=== PATIENT | female | born 1995 | race Caucasian/White ===

== ENCOUNTER 2019-05-05 14:00 | Inpatient (IN) | payer OTHER ==
[2019-05-05] MEDS ORDERED: ELECTROLYTE-148 SOLN 1,000 ML IV SCH (14:30)
[2019-05-05] MEDS ORDERED: AMPICILLIN - 2 GM in SODIUM CHLORIDE 100 ML IVPB ONE (14:30)
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
--- NOTE | 2019-05-05 14:38 | PN ---
Progress Note, Labor Vaginal Exam #1 Labor Exam Date: 05/05/19 Labor Exam Time: 14:37 Heart Rate (range): Cat I Dilatation: 7 Effacement (%): 100 Amniotic Membrane Status: Ruptured Presentation: Vertex/Position Station: -1 Remarks: Patient called out, SROM Copious clear fluids Cont Amp Anticipate Guillermina Flynn MD
[2019-05-05 14:43] VITALS: BMI 43.0
--- NOTE | 2019-05-05 15:04 | PN ---
Progress Note, Labor Vaginal Exam #2 Labor Exam Date: 05/05/19 Labor Exam Time: 15:03 Heart Rate (range): Cat I Dilatation: 8 Effacement (%): 100 Amniotic Membrane Status: Ruptured Presentation: Vertex/Position Station: -2 Remarks: Patient complaining of increased pressure and urge to push 8cm Continue current management Guillermina Flynn MD
[2019-05-05] MEDS ORDERED: OXYTOCIN 20 UNITS in 0.9% NS 20 UNIT/1,000 ML INFUS.BAG IV ONE ×2 (16:23→18:35)
[2019-05-05] MEDS ORDERED: oxyCODONE HCL 5 MG TABLET PO ONE (16:38)
[2019-05-05] MEDS ORDERED: BENZOCAINE 28 GM HEMORRHOIDAL OINTMENT TP PRN (16:38)
[2019-05-05] MEDS ORDERED: BENZOCAINE 20% 57 GM BOTTLE TP PRN (16:38)
[2019-05-05] MEDS ORDERED: METHYLERGONOVINE MALEATE 0.2 MG/1 ML AMP IM PRN (16:38)
[2019-05-05] MEDS ORDERED: BISACODYL 10 MG SUPP.RECT RC PRN (16:38)
[2019-05-05] MEDS ORDERED: WITCH HAZEL 50% (TUCKS) 40 PAD/JAR PAD TP PRN (16:38)
--- NOTE | 2019-05-05 16:38 | PN ---
Delivery - Delivery Vaginal Delivery: Spontaneous Type of Anesthesia: None Episiotomy/Laceration: None EBL (cc): 300 Delivery, Single - Stages of Labor Placenta: Yes: Spontaneous - Condition of Infant Lap Machine Operator/Code Enforcement Inspector Present: No Infant Gender: Female Position: Left, Right, OA - 1 Minute Total Score: 7 5 Minutes Total Score: 9 - Feeding Plan Initial Plan: Elected not to breastfeed exclusively throughout hospitalization Remarks - Remarks Remarks: Spontaneous delivery of VFI from DAVID position over intact perineum. No anesthesia. 41 week . Spontaneous delivery of anterior shoulder. placed onto the bed, cord cut and clamped. handed off to nursing staff. Spontaneous delivery of intact placenta with 3VC. Fundus firm. Perineum inspected inspected, no lacerations. EBL 300. Joann Flynn MD
[2019-05-05] MEDS ORDERED: OXYTOCIN 20 UNITS in 0.9% NS 20 UNIT/1,000 ML INFUS.BAG IV SCH (16:45)
[2019-05-05] MEDS ORDERED: oxyCODONE HCL 5 MG TABLET ONE (16:47)
[2019-05-05] MEDS ORDERED: ACETAMINOPHEN 325 MG TABLET (FP) ONE (16:47)
[2019-05-05] MEDS: ACETAMINOPHEN 325 MG TABLET (FP) PO PRN ×2 (16:52→20:39)
[2019-05-05 17:52] LABS: BASO % 0.2 % (0-2.0); EOS % 0.2 % (0-4.5); HEMATOCRIT 33.9 % (32.4-45.2); HEMOGLOBIN 10.8 GM/dL (10.7-15.3); LYMPH % 10.1 % (8-40); MCH 24.8 pg (25.7-33.7); MCHC 31.8 g/dl (32.0-36.0); MEAN CELL VOLUME 78.1 fl (80-96); MEAN PLT VOLUME 8.7 fl (7.5-11.1); MONO % 4.6 % (3.8-10.2); NEUT % 84.9 % (42.8-82.8); PLATELET COUNT 222 K/MM3 (134-434); RBC 4.35 M/mm3 (3.60-5.2); RDW 17.2 % (11.6-15.6); WHITE BLOOD COUNT 16.6 K/mm3 (4.0-10.0)
[2019-05-05 17:59] LABS: BLOOD UREA NITROGEN 9.3 mg/dL (7-18); CALCIUM 7.8 mg/dL (8.5-10.1); CREATININE 0.6 mg/dL (0.55-1.3); POTASSIUM 3.8 mmol/L (3.5-5.1)
[2019-05-05 18:12] LABS: INR 0.97 (0.83-1.09); PROTHROMBIN TIME (PATIENT) 11.4 SEC (9.7-13.0)
[2019-05-05 18:14] LABS: ACTIVATED PTT 26.4 SECONDS (25.2-36.5)
[2019-05-05] MEDS ORDERED: AMPICILLIN - 1 GM in SODIUM CHLORIDE 100 ML IVPB SCH (18:30)
[2019-05-05] MEDS: IBUPROFEN 600 MG TABLET (FP) PO PRN (20:42)
[2019-05-06] MEDS: ACETAMINOPHEN 325 MG TABLET (FP) PO PRN ×3 (01:22→14:09)
[2019-05-06] MEDS: IBUPROFEN 600 MG TABLET (FP) PO PRN ×3 (01:22→14:08)
[2019-05-06 08:44] LABS: BASO % 0.4 % (0-2.0); EOS % 0.8 % (0-4.5); HEMATOCRIT 30.4 % (32.4-45.2); HEMOGLOBIN 9.7 GM/dL (10.7-15.3); LYMPH % 20.9 % (8-40); MCH 24.8 pg (25.7-33.7); MCHC 31.8 g/dl (32.0-36.0); MEAN CELL VOLUME 77.8 fl (80-96); MEAN PLT VOLUME 8.7 fl (7.5-11.1); MONO % 5.8 % (3.8-10.2); NEUT % 72.1 % (42.8-82.8); PLATELET COUNT 189 K/MM3 (134-434); RBC 3.91 M/mm3 (3.60-5.2); RDW 17.2 % (11.6-15.6)
[2019-05-06] MEDS ORDERED: DIPHTH,PERTUSS(ACELL),TET 0.5 ML DISP.SYRIN IM ONE (10:00)
--- NOTE | 2019-05-06 10:00 | PN ---
Post Progress Note - Subjective Subjective: 23 yo Para 3, status post vaginal delivery, seen and evaluated. Doing well. Post Day: 1 Type of Delivery: Vital Signs: Vital Signs Temperature 98 F 05/06/19 06:33 Pulse Rate 71 05/06/19 06:33 Respiratory Rate 18 05/06/19 06:33 Blood Pressure 105/53 L 05/06/19 06:33 O2 Sat by Pulse Oximetry (%) 100 05/05/19 18:00 Breast Exam: Yes: Soft Uterus: Yes: Fundus Firm Abdomen/GI: Yes: Abdomen soft, Tolerating PO Lochia: Yes: Rubra Lochia, amount: Moderate Extremities: Yes: Calves non-tender Activity: Ambulating - Labs Labs: CBC WBC 16.6 K/mm3 (4.0-10.0) H 05/05/19 17:00 RBC 4.35 M/mm3 (3.60-5.2) 05/05/19 17:00 Hgb 10.8 GM/dL (10.7-15.3) 05/05/19 17:00 Hct 33.9 % (32.4-45.2) 05/05/19 17:00 MCV 78.1 fl (80-96) L 05/05/19 17:00 MCH 24.8 pg (25.7-33.7) L 05/05/19 17:00 MCHC 31.8 g/dl (32.0-36.0) L 05/05/19 17:00 RDW 17.2 % (11.6-15.6) H 05/05/19 17:00 Plt Count 222 K/MM3 (134-434) D 05/05/19 17:00 MPV 8.7 fl (7.5-11.1) 05/05/19 17:00 Absolute Neuts (auto) 14.1 K/mm3 (1.5-8.0) H 05/05/19 17:00 Neutrophils % 84.9 % (42.8-82.8) H D 05/05/19 17:00 Lymphocytes % 10.1 % (8-40) D 05/05/19 17:00 Monocytes % 4.6 % (3.8-10.2) 05/05/19 17:00 Eosinophils % 0.2 % (0-4.5) D 05/05/19 17:00 Basophils % 0.2 % (0-2.0) 05/05/19 17:00 Nucleated RBC % 0 % (0-0) 05/05/19 17:00 Problem List - Problems (1) Status post normal vaginal delivery Code(s): [id number] - Assessment/Plan Status post normal vaginal delivery Stable Continue routine care
[2019-05-06] MEDS ORDERED: SENNOSIDES/DOCUSATE COMBO (SENNA PLUS) TABLET (UD) PO PRN (22:00)
[2019-05-06 22:37] VITALS: PULSE 80
[2019-05-07] MEDS: ACETAMINOPHEN 325 MG TABLET (FP) PO PRN ×4 (00:16→17:25)
[2019-05-07] MEDS: IBUPROFEN 600 MG TABLET (FP) PO PRN ×4 (00:17→17:24)
[2019-05-07 09:03] VITALS: BP 114/67; TEMP 98.6
--- NOTE | 2019-05-07 09:43 | DS ---
Physical Examination Vital Signs: Vital Signs Temperature 98.6 F 05/07/19 09:01 Pulse Rate 80 05/07/19 09:01 Respiratory Rate 18 05/07/19 09:01 Blood Pressure 114/67 05/07/19 09:01 O2 Sat by Pulse Oximetry (%) 100 05/05/19 18:00 Findings/Remarks: Patient reports feeling tired and down, no suicidal/homocidal ideation. She desires to go home and its ok with psych evaluation due to history Constitutional: Yes: Anxious Eyes: Yes: WNL HENT: Yes: Atraumatic Neck: Yes: Supple Cardiovascular: Yes: Regular Rate and Rhythm Respiratory: Yes: Regular Gastrointestinal: Yes: Soft ...Rectal Exam: Yes: Deferred Renal/: Yes: Vaginal Bleeding (lochia) Breast(s): Yes: Other (deferred) Extremities: Yes: WNL Edema: Yes Edema: LLE: Trace, RLE: Trace Integumentary: Yes: WNL Wound/Incision: Yes: Well Approximated (perineal) Neurological: Yes: Alert, Oriented ...Motor Strength: WNL Psychiatric: Yes: Alert, Oriented, Other (anxious) Labs: CBC, BMP 05/06/19 07:50 05/05/19 17:00 Discharge Summary Reason For Visit: LABOR Current Active Problems Status post normal vaginal delivery (Acute) H/O depression Anxiety Procedures: Principal: VD Hospital Course: Patient had uncomplicated delivery. recovery complicated by anxiety and H/O depression with suicidal attempts. Patient denies suicidal/homocidal idetions and agreed to SW and psychiatry evaluation prior to D/C. Instructed to follow up at health center in 1-2 weeks. Warning/precautions signs discussed. Condition: Stable - Instructions Diet, Activity, Other Instructions: Regular Diet Follow up in 1-2 weeks Follow up in 4-6 weeks for your visit Psych service consulted Referrals: Joann Flynn MD [Staff Physician] - Disposition: HOME - Home Medications Comprehensive Discharge Medication List: Ambulatory Orders Albuterol Sulfate Inhaler - [Ventolin HFA Inhaler -] 1 puff IH DAILY PRN Vitamins (Sjr) - 1 tab PO DAILY tablet 07/27/16 Ibuprofen 600 mg PO Q6H PRN #30 tablet 05/06/19
--- NOTE | 2019-05-07 19:01 | CON.PSY ---
Psychiatry Consult Chief Complaint: 23 Sonia old female with third child seen for Psych eval. Had a hitory of DEpression and ? Bi polar disorder. Has not taken any Psych meds or seen any one recently. Reports feeling good, no reports of any mood changes. - Previous Psychiatric Treatment Outpatient: More than 6 mos ago Inpatient: None - Previous Substance Abuse Treatment Outpatient: None Inpatient: None - Reason for Previous Treatment Reason for Previous Treatment: Biploar Illness - Current Medications Current Medications: Active Medications Acetaminophen (Tylenol -) 650 mg PO Q3H PRN PRN Reason: PAIN Last Admin: 05/07/19 17:25 Dose: 650 mg Benzocaine (Americaine 20% [place] -) 1 spray TP PRN PRN PRN Reason: PAIN Last Admin: 05/07/19 08:02 Dose: 1 spray Benzocaine (Americaine Ointment -) 1 applic TP PRN PRN PRN Reason: PAIN Bisacodyl (Dulcolax Suppository -) 10 mg RC PRN PRN PRN Reason: CONSTIPATION Ibuprofen (Motrin -) 600 mg PO Q4H PRN PRN Reason: PAIN Last Admin: 05/07/19 17:24 Dose: 600 mg Methylergonovine Maleate (Methergine Injection -) 0.2 mg IM Q4H PRN PRN Reason: EXCESSIVE BLEEDING (L&D) Senna/Docusate Sodium (Pericolace -) 2 tablet PO HS PRN PRN Reason: CONSTIPATION Last Admin: 05/06/19 20:55 Dose: 2 tablet Witch Latanya/Glycerin (Tucks Pads -) 1 pad TP PRN PRN PRN Reason: PAIN - Allergies Allergies: Allergies Allergy/AdvReac Type Severity Reaction Status Date / Time No Known Drug Allergies Allergy Verified 05/04/19 13:25 apple Allergy Uncoded 05/04/19 13:25 cherries Allergy Uncoded 05/04/19 13:25 peaches Allergy Uncoded 05/04/19 13:25 pineapple Allergy Uncoded 05/04/19 13:25 strawberries Allergy Uncoded 05/04/19 13:25 - Current Living Status Usual Living Arrangement: With Parent - Current Mental Status Evaluation Appearance: Well Groomed Attitude: Cooperative - Affect Affect: Full Range Appropriateness: Appropriate to Content - Mood Mood: Euthymic - Speech/Language Expressive: Coherent - Psychomotor Activity Psychomotor Activity: Normal - Thought Process Thought Process: Intact - Thought Content Hallucinations: Absent Delusions: Absent - Self Perception Self Perception: No Impairment - Cognition Attention: Alert Orientation: Time Memory, Immediate Recall: Intact Memory, Short Term: 3/3 Memory, Remote with Promptin/3 - Concentration Serial Sevens Intact: Yes Simple Calculations Intact: Yes - Abstraction Proverb Interpretation: Intact Judgement: Intact - Insight Insight: Intact - Impulse Control Impulse Control: Good Control - Suicidal Ideation Suicidal Ideation: No - Homicidal Ideation Homicidal Ideation: No Assessment/Plan 1) No acute Psych symptoms at this time. 2) Discharge home when medically clear. 3) will set up a follow up @ [address] [place] [address] in 2 weeks.
== END 2019-05-07 20:45 | disposition home or self-care (01) | DRG 560 ==
LOC: JLDR 14:00 → J3W 19:55
PROVIDERS: ADMIT Obstetrics & Gynecology; ATTEND Obstetrics & Gynecology
PROC: 10E0XZZ Delivery of Products of Conception, External Approach (ICD-10-PCS; principal; 2019-05-05)
DX: O48.0 Post-term pregnancy (principal); O99.824 Streptococcus B carrier state complicating childbirth; O99.345 Other mental disorders complicating the puerperium; F41.8 Other specified anxiety disorders; Z3A.41 41 weeks gestation of pregnancy; Z37.0 Single live birth
CPT/HCPCS: 36415; 59409; 80048; 85025; 85610; 85730; 86593; 86850; 86900; 86901; 90715

== ENCOUNTER 2020-05-17 01:19 | Emergency (ER) | payer OTHER ==
[2020-05-17 01:29] VITALS: BMI 40.2
[2020-05-17] MEDS ORDERED: ACETAMINOPHEN 325 MG TABLET (FP) PO ONE (01:38)
[2020-05-17] MEDS ORDERED: ACETAMINOPHEN 325 MG TABLET (FP) ONE (01:44)
[2020-05-17] MEDS ORDERED: ALBUTEROL SO4 0.083% IH SOL 2.5 MG/3 ML VIAL.NEB. NEB ONE ×2 (02:07→02:15)
--- NOTE | 2020-05-17 02:07 | PDOC ---
History of Present Illness - General Chief Complaint: Shortness of Breath Stated Complaint: SHORTNESS OF BREATH Time Seen by Provider: 05/17/20 01:27 History Source: Patient Exam Limitations: No Limitations - History of Present Illness Initial Comments: Pt is a 24 yo F, with PMH of asthma, seasonal allergies, bipolar disorder and anxiety, who is presenting with SOB, chest "tightness" and cough x1 day. Pt states the cough is dry, but had a similar episode January 2020 and had b/l pneumonia which resolved with antibiotics. Pt denies any fevers/chills, headache, vision changes, syncope, palpitations, nausea/vomiting, abdominal pain, urinary symptoms, diarrhea/constipation, or leg swelling. Allergies: NKDA PCP: [facility] Social: Pt denies any cigarette, alcohol, or drug use. Pt denies any recent travel or sick contacts. Surgical: no relevant history. Family: no relevant history. 05/17/20 01:52 05/17/20 03:50 Past History - Travel History Traveled outside of the country in the last 30 days: No Close contact w/someone who was outside of country & ill: No - Medical History Allergies/Adverse Reactions: Allergies Allergy/AdvReac Type Severity Reaction Status Date / Time No Known Drug Allergies Allergy Verified 05/17/20 01:28 apple Allergy Uncoded 05/17/20 01:28 cherries Allergy Uncoded 05/17/20 01:28 peaches Allergy Uncoded 05/17/20 01:28 pineapple Allergy Uncoded 05/17/20 01:28 strawberries Allergy Uncoded 05/17/20 01:28 Home Medications: Ambulatory Orders Albuterol Sulfate Inhaler - [Ventolin HFA Inhaler -] 1 puff IH DAILY PRN 07/26/16 Montelukast Sodium [Singulair] 10 mg PO DAILY 05/17/20 Asthma: Yes Cancer: No Cardiac Disorders: No COPD: No Diabetes: No HTN: No Seizures: No Thyroid Disease: No - Reproductive History (#): 2 Para: 0 Cervical CA: No Dysfunctional Uterine Bleeding: No Ectopic : No Endometrial CA: No Polycystic Ovaries: No Therapeutic (s) & number: No Tubal Ligation: No Spontaneous : 1 - Immunization History Immunization Up to Date: No - Psycho-Social/Smoking History Smoking Status: No Smoking History: Never smoked Have you smoked in the past 12 months: No Number of Cigarettes Smoked Daily: 1 If you are a former smoker, when did you quit?: Oct 2012 Information on smoking cessation initiated: No - Substance Abuse Hx (Audit-C & DAST Scrn) How often the patient has a drink containing alcohol: Never Score: In Men: 4 or > Positive; In Women: 3 or > Positive: 0 Screen Result (Pos requires Nsg. Audit-10AR): Negative In the last yr the pt used illegal drug/Rx for NonMed reason: No Score: Yes response is considered Positive: 0 Screen Result (Positive result requires Nsg. DAST-10): Negative Respiratory Specific PMHX - Complaint Specific PMHX Hx Airway Support: No Hx Intubation: No Hx Asthma: Yes Hx Smoking Exposure: No Hx Vaping: No Hx Allergic Rhinitis: Yes Hx Exposure to Respiratory Irritants: No Hx Bronchitis: No Hx Pneumonia: Yes Hx Pulmonary Embolus: No Hx TB (Tuberculosis): No Review of Systems - Review of Systems Able to Perform ROS?: Yes Is the patient limited Citizen Of [place] proficient: No Constitutional: Yes: Weight Stable. No: Chills, Diaphoresis, Fever, Loss of Appetite, Malaise, Weakness HEENTM: Yes: Nose Congestion. No: Recent change in vision, Throat Pain, Throat Swelling, Difficulty Swallowing Respiratory: Yes: Cough, Shortness of Breath. No: Orthopnea, Wheezing, Productive cough, Hemoptysis Cardiac (ROS): Yes: Chest Tightness. No: Chest Pain, Edema, Irregular Heart Rate, Lightheadedness, Palpitations, Syncope ABD/GI: No: Constipated, Diarrhea, Nausea, Poor Appetite, Poor Fluid Intake, Vomiting : No: Burning, Dysuria, Pain, Urgency Musculoskeletal: No: Back Pain Integumentary: No: Rash Neurological: No: Headache, Numbness, Weakness, Dizziness Psychiatric: No: Sleep Pattern Change, Change in Appetite Endocrine: No: Increased Urine, Change in Weight Hematologic/Lymphatic: No: Anemia, Blood Clots, Easy Bleeding, Easy Bruising All Other Systems: Reviewed and Negative *Physical Exam - Vital Signs Last Vital Signs Temp Pulse Resp BP Pulse Ox 98.8 F 77 20 132/97 100 05/17/20 01:25 05/17/20 01:05/17/20 01:05/17/20 01:05/17/20 01:25 - Physical Exam Vitals stable, pt afebrile. Pt in NAD, morbidly obese body habitus. Pt alert and oriented x3. fourchette sewer generally intact, muscular strength and sensation intact. No midline spinal tenderness, step-offs, or crepitus. Head normocephalic, atraumatic. Eyes PERRLA, EOMI. Oropharynx without erythema or exudates, no LAD b/l. No nasal congestion. Hearing intact. Clear heart sounds, S1/S2, no JVD, b/l pedal edema, or heart murmur. Diminished breath sounds b/l bases, no significant wheezing or intercostal muscle use. Pt speaking in long sentences without becoming winded. No abdominal or CVA tenderness to palpation, no rebound, no guarding. Abdomen soft, non-distended, and with normoactive bowel sounds. Skin without jaundice or rash. 05/17/20 03:52 ED Treatment Course - RADIOLOGY Radiology Studies Ordered: Category Date Time Status CHEST PA & LAT [RAD] Stat Radiology 05/17/20 01:38 Ordered Medical Decision Making - Medical Decision Making Pt was seen at bedside, also will be seen by attending Dr. Dimas. Pt presenting with chest tightness, SOB, and has not had her menstrual period "in a while". Will evaluate for , asthma, pneumonia. Provided albuterol neb and tylenol for improvement of chest tightness/discomfort. Will continue to reassess pt and monitor for symptomatic improvement. ECG: NSR, intervals WNL. No TWIs or significant ST segment changes. No significant changes from prior ECG. Chest x-ray without acute pathology Pt wanted only one nebulizer, refused additional treatments. Pt air movement improving Provided 10 mg PO decadron. VSS, no hypoxia, afebrile, no evidence of pneumonia. Pt tolerating PO intake and ambulated from ER without assistance. Pt stable for d/c to home with PCP f/u. Strict return precautions provided with pt understanding. 05/17/20 03:53 Discharge - Discharge Information Problems reviewed: Yes Clinical Impression/Diagnosis: Atypical chest pain Asthma Qualifiers: Asthma severity: mild Asthma persistence: intermittent Asthma complication type: with acute exacerbation Qualified Code(s): J45.21 - Mild intermittent asthma with (acute) exacerbation Condition: Stable - Admission No - Follow up/Referral Referrals: Pantera Phillips II, DO [Non Staff, Medical] - - Patient Discharge Instructions Patient Printed Discharge Instructions: DI for Asthma -- Adult, DI for Atypical Chest Pain Additional Instructions: You were seen in the ER today for chest tightness. The results of your labs and imaging today were normal and you are not . Please follow-up with your primary care doctor within 1-2 days to discuss your visit and make sure your symptoms have improved. Please return to the ER if you have any worsening pain, development of fevers or chills, loss of consciousness, inability to tolerate food or fluids, or any other concerns. - Post Discharge Activity
--- NOTE | 2020-05-17 02:16 | PDOC ---
Documentation entered by Norman Lagos SCRIBE, acting as scribe for Florinda Dimas MD. Florinda Dimas MD: This documentation has been prepared by the machoibe, Norman Lagos SCRIBE, under my direction and personally reviewed by me in its entirety. I confirm that the documentation accurately reflects all work, treatment, procedures, and medical decision making performed by me. Attending Attestation - Resident Resident Name: JadenCarlene - ED Attending Attestation I have performed the following: I have examined & evaluated the patient, The case was reviewed & discussed with the resident, I agree w/resident's findings & plan, Exceptions are as noted - HPI HPI: 05/17/20 02:05 The patient is a 24 year old female () with a significant past medical history of asthma, anxiety, and depression with suicidal attempts who presents to the ED for evaluation of chest pressure and dry cough that began this afternoon. The patient reports feeling similar to when she had pneumonia in January which resolved with PO antibiotics. The patient also endorses taking Albuterol and Tylenol today to no relief. Denies fever, chills and/or any GI symptoms. Denies any symptoms. Denies any other symptoms. Allergies:NKDA, apples, peaches, cherries, +more PCP: Joann Flynn - Physicial Exam PE: 05/17/20 01:32 GENERAL: Awake, alert, and fully oriented, in no acute distress HEAD: No signs of trauma EYES: PERRLA, EOMI, sclera anicteric, conjunctiva clear ENT: Auricles normal inspection, hearing grossly normal, nares patent, oropharynx clear without exudates. Moist mucosa NECK: Normal ROM, supple, no lymphadenopathy, JVD, or masses LUNGS: Breath sounds equal, clear to auscultation bilaterally. No wheezes, and no crackles HEART: Regular rate and rhythm, normal S1 and S2, no murmurs, rubs or gallops ABDOMEN: Soft, nontender, normoactive bowel sounds. No guarding, no rebound. No masses EXTREMITIES: Normal range of motion, no edema. No clubbing or cyanosis. No cords, erythema, or tenderness NEUROLOGICAL: Cranial nerves II through XII grossly intact. Normal speech, normal gait SKIN: Warm, Dry, normal turgor, no rashes or lesions noted. - Medical Decision Making Pt with SOB, noted to have episodes of coughing c/w bronchospasm when she attempts to take a deep breath. Will treat with albuterol nebs. Await test, CXR to r/o pna (obtaining CXR as she had pna with normal vitals a few months ago). 05/17/20 03:05 UCG negative. CXR obtained, no signs of pna. Will treat for asthma exacerbation with steroids, nebs. Anticipate DC home. Discharge - Discharge Information Problems reviewed: Yes Clinical Impression/Diagnosis: Atypical chest pain Asthma Qualifiers: Asthma severity: mild Asthma persistence: intermittent Asthma complication type: with acute exacerbation Qualified Code(s): J45.21 - Mild intermittent asthma with (acute) exacerbation Condition: Stable Disposition: HOME - Follow up/Referral Referrals: Pantera Phillips II, DO [Non Staff, Medical] - - Patient Discharge Instructions Patient Printed Discharge Instructions: DI for Asthma -- Adult, DI for Atypical Chest Pain Additional Instructions: You were seen in the ER today for chest tightness. The results of your labs and imaging today were normal and you are not . Please follow-up with your primary care doctor within 1-2 days to discuss your visit and make sure your symptoms have improved. Please return to the ER if you have any worsening pain, development of fevers or chills, loss of consciousness, inability to tolerate food or fluids, or any other concerns. - Post Discharge Activity
[2020-05-17 02:27] LABS: EPI CELLS >36 /uL (0-25.1); HCG,QUALITATIVE URINE Negative; HYALINE CASTS 5 /uL (0-3.1); URINE APPEARANCE CLEAR; URINE BACTERIA 14 /uL (0-1359); URINE BILIRUBIN NEGATIVE (NEGATIVE); URINE COLOR YELLOW; URINE GLUCOSE (UA) NEGATIVE (NEGATIVE); URINE KETONE TRACE (NEGATIVE); URINE LEUK ESTERASE 1+ (NEGATIVE); URINE NITRITE NEGATIVE (NEGATIVE); URINE PROTEIN NEGATIVE (NEGATIVE); URINE RBC 12 /uL (0-23.9); URINE UROBILINOGEN 0.2 mg/dL (0.2-1.0); URINE WBC 38 /uL (0-25.8)
[2020-05-17 02:32] VITALS: PULSE 72
[2020-05-17] MEDS ORDERED: ALBUTEROL SO4 2.5/IPRATROPIUM 0.5 INH SOL 3 ML VIAL.NEB. NEB ONE (02:47)
[2020-05-17] MEDS ORDERED: DEXAMETHASONE 4 MG TABLET (FP) PO STA (03:03)
[2020-05-17 03:45] VITALS: BP 130/72; TEMP 98.2
--- NOTE | 2020-05-17 09:28 | EKG ---
Test Reason : Blood Pressure : / mmHG Vent. Rate : 076 BPM Atrial Rate : 076 BPM P-R Int : 140 ms QRS Dur : 082 ms QT Int : 392 ms P-R-T Axes : 052 042 013 degrees QTc Int : 441 ms NORMAL SINUS RHYTHM NONSPECIFIC T WAVE ABNORMALITY ABNORMAL ECG WHEN COMPARED WITH ECG OF 02-MAR-2020 16:53, NON-SPECIFIC CHANGE IN ST SEGMENT IN ANTERIOR LEADS Confirmed by Madeline Rai ([id number]) on 05/17/2020 9:27:47 AM Referred By: Confirmed By:Madeline Rai
== END 2020-05-17 03:46 | disposition home or self-care (01) ==
LOC: JER 01:19
PROC: 3E0F7GC Introduction of Other Therapeutic Substance into Respiratory Tract, Via Natural or Artificial Opening (ICD-10-PCS; principal; 2020-05-17)
DX: R07.89 Other chest pain (principal); J45.21 Mild intermittent asthma with (acute) exacerbation
CPT/HCPCS: 71046-TC-FY; 81003; 84703; 87077; 87086; 93005; 93010; 99285-25; U0003

== ENCOUNTER 2023-01-27 16:03 | Emergency (ER) | payer SELFPAY ==
[2023-01-27 16:25] VITALS: TEMP 98.5; BMI 40.2
[2023-01-27] MEDS ORDERED: SODIUM CHLORIDE 0.9% 500 ML INFUS.BAG IV ONE (17:41)
[2023-01-27] MEDS ORDERED: KETOROLAC TROMETHAMINE 30 MG/1 ML VIAL IVPUSH ONE (17:41)
[2023-01-27] MEDS ORDERED: METOCLOPRAMIDE HCL INJECTION 10 MG/2 ML VIAL IVPUSH ONE (17:41)
[2023-01-27] MEDS ORDERED: METOCLOPRAMIDE HCL INJECTION 10 MG/2 ML VIAL ONE (17:54)
[2023-01-27] MEDS ORDERED: KETOROLAC TROMETHAMINE 30 MG/1 ML VIAL ONE (17:54)
[2023-01-27] MEDS ORDERED: SUMATRIPTAN SUCCINATE 6 MG/0.5 ML VIAL SQ ONE (19:17)
[2023-01-27] MEDS ORDERED: ACETAMINOPHEN 1000 MG/100 ML BAG IVPB ONE (19:18)
[2023-01-27] MEDS ORDERED: SUMATRIPTAN SUCCINATE 6 MG/0.5 ML VIAL ONE (19:23)
[2023-01-27] MEDS ORDERED: ACETAMINOPHEN INJECTION 100 ML IVPB ONE (19:23)
[2023-01-27] MEDS ORDERED: diazePAM 5 MG TABLET PO ONE (19:59)
[2023-01-27 20:15] VITALS: BP 116/53; PULSE 62; RESP 18
== END 2023-01-27 20:59 | disposition home or self-care (01) ==
LOC: JER 16:03
PROC: 3E033NZ Introduction of Analgesics, Hypnotics, Sedatives into Peripheral Vein, Percutaneous Approach (ICD-10-PCS; principal; 2023-01-27)
PROC: 3E033GC Introduction of Other Therapeutic Substance into Peripheral Vein, Percutaneous Approach (ICD-10-PCS; 2023-01-27)
PROC: 3E0333Z Introduction of Anti-inflammatory into Peripheral Vein, Percutaneous Approach (ICD-10-PCS; 2023-01-27)
PROC: 3E033GC Introduction of Other Therapeutic Substance into Peripheral Vein, Percutaneous Approach (ICD-10-PCS; 2023-01-27)
DX: G43.909 Migraine, unspecified, not intractable, without status migrainosus (principal)
CPT/HCPCS: 99284-25

== ENCOUNTER 2023-10-23 12:50 | Emergency (ER) | payer OTHER ==
[2023-10-23 12:57] VITALS: PULSE 89; TEMP 98; BMI 41.1
[2023-10-23] MEDS ORDERED: SODIUM CHLORIDE 0.9% 500 ML INFUS.BAG IV ONE (14:07)
[2023-10-23 14:48] LABS: BASO % 0.6 % (0-2.0); EOS % 1.1 % (0-4.5); HEMATOCRIT 39.7 % (32.4-45.2); HEMOGLOBIN 12.7 GM/dL (10.7-15.3); LYMPH % 24.8 % (8-40); MCH 27.3 pg (25.7-33.7); MCHC 31.9 g/dl (32.0-36.0); MEAN CELL VOLUME 85.6 fl (80-96); MEAN PLT VOLUME 8.2 fl (7.5-11.1); MONO % 5.6 % (3.8-10.2); NEUT % 67.9 % (42.8-82.8); PLATELET COUNT 232 10^3/uL (134-434); RBC 4.63 M/mm3 (3.60-5.2); RDW 13.7 % (11.6-15.6); WHITE BLOOD COUNT 11.3 K/mm3 (4.0-10.0)
[2023-10-23 15:02] LABS: POTASSIUM 3.9 mmol/L (3.5-5.1)
[2023-10-23 15:04] LABS: ALBUMIN 3.6 g/dl (3.4-5.0); BLOOD UREA NITROGEN 9.2 mg/dL (7-18); CALCIUM 8.7 mg/dL (8.5-10.1)
[2023-10-23 15:07] LABS: CREATININE 0.4 mg/dL (0.55-1.3)
[2023-10-23 15:09] LABS: BILIRUBIN,TOTAL 0.5 mg/dL (0.2-1); TOT PROT 7.8 g/dl (6.4-8.2)
[2023-10-23 16:05] VITALS: BP 117/70; RESP 18
== END 2023-10-23 16:05 | disposition home or self-care (01) ==
LOC: JER 12:50
DX: R00.2 Palpitations (principal); M79.10 Myalgia, unspecified site; R68.83 Chills (without fever); R07.89 Other chest pain; Z20.822 Contact with and (suspected) exposure to COVID-19
CPT/HCPCS: 0241U-QW; 36415; 71046-TC-FY; 80053; 84443; 84484; 84703; 85025; 93005; 93010; 99285-25

== ENCOUNTER 2023-11-15 22:40 | Emergency (ER) | payer OTHER ==
[2023-11-15 22:55] VITALS: BP 116/78; PULSE 85; RESP 22; TEMP 97.8; BMI 44.9
[2023-11-16] MEDS ORDERED: ALBUTEROL SO4 2.5/IPRATROPIUM 0.5 INH SOL 3 ML VIAL.NEB. NEB ONE ×2 (01:16→01:41)
== END 2023-11-16 03:43 | disposition home or self-care (01) ==
LOC: JER 22:40
PROC: 3E0F7GC Introduction of Other Therapeutic Substance into Respiratory Tract, Via Natural or Artificial Opening (ICD-10-PCS; principal; 2023-11-16)
DX: R06.02 Shortness of breath (principal); J45.909 Unspecified asthma, uncomplicated; Z20.822 Contact with and (suspected) exposure to COVID-19
CPT/HCPCS: 0241U-QW; 71046-TC-FY; 93005; 93010; 99285-25

== ENCOUNTER 2024-03-19 19:24 | Emergency (ER) | payer OTHER ==
[2024-03-19 19:39] VITALS: BP 110/71; PULSE 95; RESP 20; TEMP 98.2; BMI 45.7
[2024-03-19] MEDS: IBUPROFEN 600 MG TABLET (FP) PO ONE (21:20)
[2024-03-19] MEDS ORDERED: IBUPROFEN 600 MG TABLET (FP) PO ONE (21:20)
[2024-03-19 21:40] LABS: EPI CELLS >36 /uL (0-25.1); HYALINE CASTS 2 /uL (0-3.1); URINE APPEARANCE CLEAR; URINE BACTERIA 491 /uL (0-1359); URINE BILIRUBIN NEGATIVE (NEGATIVE); URINE COLOR YELLOW; URINE GLUCOSE (UA) NEGATIVE (NEGATIVE); URINE KETONE NEGATIVE (NEGATIVE); URINE LEUK ESTERASE 2+ (NEGATIVE); URINE NITRITE NEGATIVE (NEGATIVE); URINE PROTEIN NEGATIVE (NEGATIVE); URINE UROBILINOGEN 0.2 mg/dL (0.2-1.0); URINE WBC 69 /uL (0-25.8)
[2024-03-19 21:48] LABS: URINE RBC 36.2 /uL (0-23.9)
== END 2024-03-19 21:51 | disposition home or self-care (01) ==
LOC: JERFT 19:24
DX: M54.41 Lumbago with sciatica, right side (principal); M54.42 Lumbago with sciatica, left side; R35.0 Frequency of micturition; B34.9 Viral infection, unspecified; J02.9 Acute pharyngitis, unspecified; R10.9 Unspecified abdominal pain
CPT/HCPCS: 81003; 84703; 87651; 99283-25

== ENCOUNTER 2024-06-10 00:31 | Emergency (ER) | payer OTHER ==
[2024-06-10 00:37] VITALS: BP 136/76; PULSE 85; RESP 20; TEMP 98.1; BMI 43.7
[2024-06-10] MEDS ORDERED: predniSONE 20 MG TABLET (UD) ONE ×2 (00:54→01:19)
[2024-06-10] MEDS ORDERED: ALBUTEROL SO4 2.5/IPRATROPIUM 0.5 INH SOL 3 ML VIAL.NEB. NEB ONE (00:54)
[2024-06-10] MEDS ORDERED: ALBUTEROL SO4 2.5/IPRATROPIUM 0.5 INH SOL 3 ML VIAL.NEB. NEB SCH (01:00)
[2024-06-10] MEDS: predniSONE 20 MG TABLET (UD) PO ONE ×3 (01:00→01:32)
[2024-06-10] MEDS: ALBUTEROL SO4 2.5/IPRATROPIUM 0.5 INH SOL 3 ML VIAL.NEB. NEB SCH (01:00)
== END 2024-06-10 02:45 | disposition home or self-care (01) ==
LOC: JER 00:31
PROC: 3E0F7GC Introduction of Other Therapeutic Substance into Respiratory Tract, Via Natural or Artificial Opening (ICD-10-PCS; principal; 2024-06-10)
DX: J45.909 Unspecified asthma, uncomplicated (principal); R05.9 Cough, unspecified; R07.89 Other chest pain; Z20.822 Contact with and (suspected) exposure to COVID-19
CPT/HCPCS: 0241U-QW; 76604; 94640; 99284-25

== ENCOUNTER 2024-07-31 18:21 | Emergency (ER) | payer OTHER ==
[2024-07-31 19:01] VITALS: RESP 18; TEMP 99; BMI 39.3
[2024-07-31] MEDS ORDERED: LORazepam 0.5 MG TABLET ONE ×2 (19:20→20:26)
[2024-07-31] MEDS: LORazepam 2 MG TABLET PO ONE ×2 (19:24→20:29)
[2024-07-31 19:30] LABS: VENOUS BASE EXCESS -0.5 mmol/L (-2-2); VENOUS O2 SATURATION 43.3 % (70-80); VENOUS PCO2 47.4 mmHg (38-52); VENOUS PH 7.349 (7.310-7.410)
[2024-07-31 19:32] LABS: BASO % 0.2 % (0-2.0); EOS % 0.9 % (0-4.5); HEMATOCRIT 35.3 % (32.4-45.2); HEMOGLOBIN 11.7 GM/dL (10.7-15.3); LYMPH % 20.7 % (8-40); MCH 27.9 pg (25.7-33.7); MCHC 33.2 g/dl (32.0-36.0); MEAN PLT VOLUME 8.4 fl (7.5-11.1); MONO % 6.2 % (3.8-10.2); PLATELET COUNT 200 10^3/uL (134-434); RBC 4.21 M/mm3 (3.60-5.2); RDW 14.1 % (11.6-15.6); WHITE BLOOD COUNT 11.6 K/mm3 (4.0-10.0)
[2024-07-31 19:45] LABS: POTASSIUM 3.7 mmol/L (3.5-5.1)
[2024-07-31 19:47] LABS: EPI CELLS 22 /uL (0-25.1); HYALINE CASTS 10 /uL (0-3.1); PH,URINE 5.5 (5.0-8.0); URINE APPEARANCE CLEAR; URINE BACTERIA 590 /uL (0-1359); URINE BILIRUBIN NEGATIVE (NEGATIVE); URINE COLOR YELLOW; URINE GLUCOSE (UA) NEGATIVE (NEGATIVE); URINE KETONE 1+ (NEGATIVE); URINE LEUK ESTERASE 2+ (NEGATIVE); URINE NITRITE NEGATIVE (NEGATIVE); URINE PROTEIN NEGATIVE (NEGATIVE); URINE RBC 30 /uL (0-23.9); URINE UROBILINOGEN 0.2 mg/dL (0.2-1.0); URINE WBC 130 /uL (0-25.8)
[2024-07-31 19:48] LABS: CALCIUM 8.3 mg/dL (8.5-10.1)
[2024-07-31 19:49] LABS: ALBUMIN 3.7 g/dl (3.4-5.0); MAGNESIUM 1.6 mg/dL (1.8-2.4)
[2024-07-31 19:52] LABS: CREATININE 0.5 mg/dL (0.55-1.3)
[2024-07-31] MEDS ORDERED: ACETAMINOPHEN INJECTION 100 ML ONE (19:52)
[2024-07-31 19:53] LABS: BILIRUBIN,TOTAL 0.6 mg/dL (0.2-1); TOT PROT 6.8 g/dl (6.4-8.2)
[2024-07-31] MEDS: ACETAMINOPHEN 1000 MG/100 ML BAG IVPB ONE (20:14)
[2024-07-31 21:42] VITALS: BP 129/83; PULSE 77
== END 2024-07-31 22:33 | disposition home or self-care (01) ==
LOC: JER 18:21
PROC: 3E033NZ Introduction of Analgesics, Hypnotics, Sedatives into Peripheral Vein, Percutaneous Approach (ICD-10-PCS; principal; 2024-07-31)
DX: R55 Syncope and collapse (principal)
CPT/HCPCS: 36415; 70450-TC; 80053; 81003; 82803; 83735; 84484; 84703; 85025; 87086; 93005; 93010; 99285-25; J0131

== ENCOUNTER 2024-08-21 22:55 | Emergency (ER) | payer OTHER ==
[2024-08-21 23:03] VITALS: BP 129/69; PULSE 95; RESP 18; TEMP 97.9; BMI 46.4
[2024-08-21] MEDS ORDERED: FAMOTIDINE 20 MG TABLET ONE (23:59)
[2024-08-21] MEDS ORDERED: FAMOTIDINE 10 MG TABLET ONE (23:59)
[2024-08-21] MEDS ORDERED: DICYCLOMINE HCL 10 MG CAPSULE ONE (23:59)
[2024-08-22] MEDS ORDERED: MAG HYDROX/AL HYDROX/SIMETH 30 ML UNIT-DOSE CUP ONE (00:24)
[2024-08-22] MEDS ORDERED: ACETAMINOPHEN INJECTION 100 ML ONE (00:27)
[2024-08-22] MEDS: ACETAMINOPHEN 1000 MG/100 ML BAG IVPB ONE (00:27)
[2024-08-22] MEDS: DICYCLOMINE HCL 20 MG TABLET PO ONE (00:27)
[2024-08-22] MEDS: MAG HYDROX/AL HYDROX/SIMETH 30 ML UNIT-DOSE CUP PO ONE (00:27)
[2024-08-22] MEDS: FAMOTIDINE 20 MG TABLET PO ONE (00:27)
[2024-08-22 00:37] LABS: EPI CELLS 35 /uL (0-25.1); HYALINE CASTS 0 /uL (0-3.1); PH,URINE 6.5 (5.0-8.0); URINE APPEARANCE CLEAR; URINE BACTERIA 471 /uL (0-1359); URINE BILIRUBIN NEGATIVE (NEGATIVE); URINE COLOR YELLOW; URINE GLUCOSE (UA) NEGATIVE (NEGATIVE); URINE KETONE 1+ (NEGATIVE); URINE LEUK ESTERASE TRACE (NEGATIVE); URINE NITRITE NEGATIVE (NEGATIVE); URINE PROTEIN NEGATIVE (NEGATIVE); URINE RBC 33 /uL (0-23.9); URINE WBC 41 /uL (0-25.8)
[2024-08-22 00:38] LABS: BASO % 0.5 % (0-2.0); HEMATOCRIT 39.5 % (32.4-45.2); HEMOGLOBIN 12.9 GM/dL (10.7-15.3); LYMPH % 34.6 % (8-40); MCH 27.8 pg (25.7-33.7); MCHC 32.5 g/dl (32.0-36.0); MEAN CELL VOLUME 85.4 fl (80-96); MEAN PLT VOLUME 8.1 fl (7.5-11.1); MONO % 6.4 % (3.8-10.2); NEUT % 56.5 % (42.8-82.8); PLATELET COUNT 255 10^3/uL (134-434); RBC 4.63 M/mm3 (3.60-5.2); RDW 13.7 % (11.6-15.6); WHITE BLOOD COUNT 10.7 K/mm3 (4.0-10.0)
[2024-08-22 00:48] LABS: POTASSIUM 3.8 mmol/L (3.5-5.1)
[2024-08-22 00:50] LABS: CALCIUM 9.3 mg/dL (8.5-10.1)
[2024-08-22 00:51] LABS: ALBUMIN 3.5 g/dl (3.4-5.0); BLOOD UREA NITROGEN 12.8 mg/dL (7-18)
[2024-08-22 00:54] LABS: CREATININE 0.6 mg/dL (0.55-1.3)
[2024-08-22 00:56] LABS: BILIRUBIN,TOTAL 0.3 mg/dL (0.2-1); TOT PROT 7.2 g/dl (6.4-8.2)
[2024-08-22] MEDS ORDERED: NITROFURANTOIN MACROCRYSTAL 50 MG CAPSULE (FP) ONE (02:07)
[2024-08-22] MEDS: NITROFURANTOIN MONOHYD/M-CRYST 100 MG CAPSULE PO ONE (02:12)
== END 2024-08-22 02:13 | disposition left against medical advice (07) ==
LOC: JER 22:55
PROC: 3E033NZ Introduction of Analgesics, Hypnotics, Sedatives into Peripheral Vein, Percutaneous Approach (ICD-10-PCS; principal; 2024-08-22)
DX: N39.0 Urinary tract infection, site not specified (principal); R10.11 Right upper quadrant pain; R10.13 Epigastric pain; R35.0 Frequency of micturition; R11.10 Vomiting, unspecified; R19.7 Diarrhea, unspecified; Z20.822 Contact with and (suspected) exposure to COVID-19
CPT/HCPCS: 0241U-QW; 36415; 76705-TC; 80053; 81003; 83690; 84703; 85025; 87086; 99284-25; J0131